=== PATIENT | female | born 1970 | race Caucasian/White ===

== ENCOUNTER → 2024-12-03 | Outpatient (CLI) | payer OTHER, SELFPAY ==
[2024-12-03 13:22] LABS: Glucose Estimated Average 117 mg/dL (80-131); Hemoglobin A1C 5.7 % Hgb (4.8-6.0)
[2024-12-03 13:25] LABS: Cardiac Risk Estimate 3.8 RATIO (3.7-5.6); Cholesterol 115 mg/dL (132-200); HDL Cholesterol 30 mg/dL (40-60); LDL Cholesterol,Calculated 59 mg/dL (0-130); Triglycerides 130 mg/dL (30-150)
== END | disposition home or self-care (01) ==
LOC: COPL 12:21
PROVIDERS: PCP Family Medicine; Referring Provider Family Medicine; Visit Provider Family Medicine
DX: E66.9 Obesity, unspecified (principal); E78.5 Hyperlipidemia, unspecified
CPT/HCPCS: 36415; 80061; 83036

== ENCOUNTER → 2024-12-31 | Outpatient (CLI) | payer OTHER, SELFPAY ==
[2024-12-31 13:06] LABS: Basophils # (Auto) 0.1 Thou/mm3 (0.0-0.2); Basophils % (Auto) 1 % (0-2.5); Eosinophils # (Auto) 0.2 Thou/mm3 (0.0-0.5); Eosinophils % (Auto) 4 % (0-10); Hemoglobin 14.4 g/dL (12.0-16.0); Immature Granulocytes % (Auto) 0 % (0-0); Immature Granulocytes Auto 0.02 Thou/mm3 (0.00-0.00); Lymphocytes # (Auto) 2.4 Thou/mm3 (1.0-4.8); Lymphocytes % (Auto) 35 % (10-50); Mean Corpuscular HGB Conc 34.3 g/dl (31.0-37.0); Mean Corpuscular Hemoglobin 28.2 pg (25.0-35.0); Mean Corpuscular Volume 82 fL (80-100); Monocytes # (Auto) 0.5 Thou/mm3 (0.0-0.8); Monocytes % (Auto) 7 % (0-12); Neutrophils # (Auto) 3.6 Thou/mm3 (1.8-7.7); Neutrophils % (Auto) 53 % (37-80); Nucleated Red Blood Cell % 0 /100 WBC (0); Platelet Count 212 Thou/mm3 (140-440); RDW Standard Deviation 41.7 fL (36.4-46.3); Red Blood Count 5.11 Miln/mm3 (4.00-5.20); White Blood Count 6.8 Thou/mm3 (3.6-11.0)
[2024-12-31 13:25] LABS: Alanine Aminotransferase 51 U/L (10-49); Albumin, Serum 4.6 gm/dL (3.5-5.0); Albumin/Globulin Ratio 2.3 (1.2-2.2); Alkaline Phosphatase 125 U/L (46-116); Anion Gap 9 (7-16); Aspartate Amino Transferase 33 U/L (0-34); BUN/Creatinine Ratio 14 Ratio (12-20); Bilirubin,Total 0.5 mg/dL (0.3-1.2); Blood Urea Nitrogen 13 mg/dL (9-23); Calcium 9.7 mg/dL (8.3-10.6); Calcium (Corrected) 9.7 mg/dL (8.5-10.1); Carbon Dioxide 28.9 mMol/L (20.0-31.0); Chloride 104 mMol/L (98-107); Creatinine (Component) 0.9 mg/dL (0.6-1.3); Glucose 129 mg/dL (74-106); Osmolality,Calculated 285 (275-295); Potassium 5.1 mMol/L (3.4-5.1); Sodium 142 mMol/L (136-145); Total Protein 6.6 gm/dL (5.7-8.2); eGFR > 60 See Note
[2024-12-31 13:41] LABS: CA 15-3 7.3 U/mL (<32.4); Vitamin D 25 Hydroxy Total 80.2 ng/mL (7.3-40.2)
== END | disposition home or self-care (01) ==
LOC: COPL 12:12
PROVIDERS: PCP Family Medicine; Referring Provider Internal Medicine Hematology & Oncology; Visit Provider Internal Medicine Hematology & Oncology
DX: C50.211 Malignant neoplasm of upper-inner quadrant of right female breast (principal); M85.80 Other specified disorders of bone density and structure, unspecified site
CPT/HCPCS: 36415; 80053; 82306; 85025; 86300

== ENCOUNTER → 2025-03-12 15:27 | Outpatient (AMB) | payer OTHER, SELFPAY ==
[2025-03-12 15:43] VITALS: BP 117/75; PULSE 61; RESP 17; TEMP 35.3; O2SAT 96; BMI 33.5
--- NOTE | 2025-03-12 15:43 | GYNCLNT_ITS ---
Vital Signs 03/12/25 15:43 Height 1.55 m Height Method Stated Weight 80.456 kg Weight Measurement Method Standing Scale BMI 33.5 BP 117/75 Blood Pressure Source Automatic Cuff Blood Pressure Location Left Upper Arm Position Sitting Respiration 17 Pulse 61 Pulse Source Monitor Temp 95.5 F L Temp Source Temporal Artery Scan Pulse Oximetry (%) 96 Oxygen Delivery Method Room Air Allergies/Home Meds Allergies & Medications Allergies NKA* Allergy (Uncoded 03/12/25 15:45) Medication Reconciliation No Known Home Medications 03/12/25 [History Confirmed 03/12/25] Intake Visit Data Collection New Patient or Established: New Patient (never been to [facility]) Reason for Visit:: OUTPATIENT PROGRAM COORDINATOR ANNUAL EXAM Seen by Clinical Staff ONLY (RN/MA): No Hat Conditioner Required: No Do You Feel Safe at Home: Yes Authorities Contacted: N/A PCP or OBGYN visit in last 3 months: No Hx Now: No Are you currently on any form of Control: No Pain Present Currently: No Pain Scale Used: Suazo-Portillo/Numerical Pain scale:: 0 Smoking Status Smoking Status: Never smoker Drop Clipper 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 Muñoz [address] Demarco [address] Kan 2019 Laparoscopic unilateral salpingectomy 2002 x 2, 2000, 2004 Other Relevant History: History of breast cancer. Status post bilateral mastectomy with reconstruction, and chemotherapy. BRCA 1 and 2 negative Elevated cholesterol No hypertension asthma or diabetes Last colonoscopy 2022 last bone density 12/26 last mammogram 05/2018 last Pap Questionnaires Covid-19 Vaccine Questionnaire Has patient been vacinated for Covid-19 Have you been vacinated for Covid-19: No PHQ-9 PHQ-2 Over the last 2 weeks, how often have you been bothered by any of the following problems? 1. Little interest or pleasure in doing things: not at all 2. Feeling down, depressed, or hopeless: not at all Total score: 0 PHQ-9 3. Trouble falling or staying asleep, or sleeping too much: Not at all 4. Feeling tired or having little energy: Not at all 5. Poor appetite or overeating: Not at all 6. Feeling bad about yourself - or that you are a failure or have let yourself or your family down: Not at all 7. Trouble concentrating on things, such as reading the newspaper or watching television: Not at all 8. Moving or speaking so slowly that other people could have noticed? - Or the opposite - being so fidgety or restless that you have been moving around a lot more than usual: not at all If you checked off any problems, how difficult have these problems made it for you to do your work, take care of things at home, or get along with other people?: not difficult at all Source: Developed by Drs. Trey Malloy, Raya An, Zachary Sam and colleagues, with an educational sha from [employer]. Depression screen completed yes Social History Living Situation History Marital Status: Lives With: Family Housing: House Housing Other:: Has a 20-year-old son and 24-year-old daughter, lost her in 2019 Tobacco History Smoking Status: Never smoker Second Hand Smoke Exposure: No Alcohol History Alcohol Intake: Never Domestic Abuse History Do You Feel Safe at Home: Yes History of Present Illness HPI Narrative The patient is a pleasant 54-year-old -0-3-2, history of miscarriage x 2, history of ectopic status post unilateral laparoscopic salpingectomy and 2 C-sections. Both babies weighed around 7 pounds 11 ounces. All her past gynecological care was through [place] [facility]. The patient presents as a new patient for an annual exam. She has a history of breast cancer diagnosed in 2019. She had a bilateral mastectomy by Dr. Muñoz followed by breast reconstruction by Dr. Demarco. She is negative for the BRCA 1 [address] Kan then performed a laparoscopic oophorectomy in 2019, as the patient's breast CA was triple positive. I have none of her past medical records today. She unfortunately also lost her spouse in 2019. She states he was fixing up the house and fell off a ladder and . She is not currently sexually active and doubts she will get remarried. She is happy to stay single. She has 2 children. Her daughter is 24 and is working towards getting a graduate degree in physical training and wants to work for some type of sports team. Her son is 20 and going away to [place] to college and is having a hard time deciding what he wants to do. 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 She still follows with Dr. Rider who is her oncologist. Her primary care is Dr. Vega and she did have a colon screen recently. Today she has no gynecological complaints specifically no hot flashes night sweats or vaginal bleeding. She still has her uterus in place. Gynecologic pain symptoms: Reports none Menopause concerns/symptoms: Reports none Other pertinent information: Patient went through menopause at age 47 Review of Systems Review of Systems Narrative Review of Systems: No hot flashes night sweats vaginal dryness or abnormal uterine bleeding. No incontinence. No pelvic pain. Exam Narrative Physical exam: Breast exam reveals bilateral implants. Bilateral mastectomy scars no breast tissue. No nipple present. No nipple tattoo present. No lumps or lympha denopathy. General Limitations: no limitations General Appearance: alert, in no apparent distress, comfortable, cooperative and well groomed Neck Neck exam: Present normal inspection, full ROM and trachea midline Chest Chest inspection: Present normal inspection and symmetric chest wall rise Resp Respiratory exam: Present normal lung sounds bilaterally Card Cardiovascular exam: Present regular rate, normal rhythm and normal heart sounds Abdominal Abdominal exam: Present soft and normal bowel sounds External exam: Present normal external exam (No significant pelvic organ prolapse) Speculum exam: Present normal speculum exam Bimanual exam: Present normal bimanual exam (Uterus is anteverted normal size no adnexal masses or tenderness.) Extremities Extremities exam: Present normal inspection and full ROM Psych Psychiatric exam: Present normal affect and normal mood Skin Skin exam: Present warm, dry, intact and normal color Office Procedures OB Clinic LOC & Office Proc's Nursing/Assessment Patient Status: Initial/New Patient OB Clinic Nursing Assessment: Medication Reconciliation, Update PMH in EMR and Vital Signs OB Clinic Coordination of Care: Complex Care and Chronic Disease 1-5, Consent,records obtained, informed consent, Education Simp Pt/Fam, Lab and Marina ging orders and Staff clarify orders Miscellaneous Interventions: Breast Exam and Pelvic/Pap Smear Set up New Patient Charge New Patient Point Assignment: [id number] New Patient Point Charge: PACS SPECIALIST Level 4 ([id number]) Assessment & Plan Diagnosis / Problem List (1) Encounter for Routine Gynecological Examination: Qualifiers: Gynecological examination findings: abnormal findings ABSENT Qualified Code(s): Z01.419 - Encounter for gynecological examination (general) (routine) without abnormal findings Plan: Pap with cotesting to HPV performed pelvic exam performed breast exam performed and encouraged. Patient is following with her breast cancer doctors. She states she does not need mammograms. She is up-to-date with colon screening and bone mineral density screening. (2) Breast CA: Status: Acute Qualifiers: Breast location: unspecified site of breast Estrogen receptor status: positive Patient sex: female Laterality: unspecified laterality Qualified Code(s): C50.919 - Malignant neoplasm of unspecified site of unspecified female breast; Z17.0 - Estrogen receptor positive status [ER+] Plan: Patient's status post bilateral mastectomy with reconstruction and chemotherapy.. She will follow with her oncologist Dr. Rider. She is BRCA1 BRCA2 negative and has had a prophylactic bilateral salpingo-oophorectomy.. Additional Plan Follow Up: 1 Year [facility]: [facility] Pap Smear Procedure Pre-op diagnosis general: Annual wellness exam Post-op diagnosis procedure note: Same [place] in room during procedure?: No Procedure position: lithotomy Speculum inserted, cervix visualized: Yes Cervical appearance: normal Collection method: spatula and cytobrush Specimen placed in liquid-based cytology medium: Yes Complications: No Patient tolerated procedure well: Yes Follow up pending results: phone call Procedure Notes:: Pap with cotesting to HPV performed Papsmear completed: yes
== END ==
LOC: HODSOBC 15:27
PROVIDERS: PCP Family Medicine; Referring Provider Family Medicine; Supervising Provider Obstetrics & Gynecology; Visit Provider Obstetrics & Gynecology
DX: Z01.419 Encounter for gynecological examination (general) (routine) without abnormal findings (principal); Z11.51 Encounter for screening for human papillomavirus (HPV); Z85.3 Personal history of malignant neoplasm of breast; Z90.13 Acquired absence of bilateral breasts and nipples; Z92.21 Personal history of antineoplastic chemotherapy; Z90.722 Acquired absence of ovaries, bilateral; Z90.79 Acquired absence of other genital organ(s); Z98.82 Breast implant status
CPT/HCPCS: 99204; Q0091; G0463

== ENCOUNTER → 2025-07-05 | Outpatient (CLI) | payer OTHER, SELFPAY ==
[2025-07-05 13:17] LABS: Basophils # (Auto) 0.1 Thou/mm3 (0.0-0.2); Basophils % (Auto) 1 % (0-2.5); Eosinophils # (Auto) 0.2 Thou/mm3 (0.0-0.5); Eosinophils % (Auto) 3 % (0-10); Hematocrit 47.1 % (36.0-46.0); Hemoglobin 15.6 g/dL (12.0-16.0); Immature Granulocytes Auto 0.02 Thou/mm3 (0.00-0.00); Lymphocytes # (Auto) 2.2 Thou/mm3 (1.0-4.8); Lymphocytes % (Auto) 30 % (10-50); Mean Corpuscular HGB Conc 33.1 g/dl (31.0-37.0); Mean Corpuscular Hemoglobin 28.7 pg (25.0-35.0); Mean Corpuscular Volume 87 fL (80-100); Monocytes # (Auto) 0.5 Thou/mm3 (0.0-0.8); Monocytes % (Auto) 7 % (0-12); Neutrophils # (Auto) 4.3 Thou/mm3 (1.8-7.7); Neutrophils % (Auto) 60 % (37-80); Nucleated Red Blood Cell # 0.00 Thou/mm3 (0.00-0.00); Nucleated Red Blood Cell % 0 /100 WBC (0); Platelet Count 219 Thou/mm3 (140-440); RDW Standard Deviation 42.8 fL (36.4-46.3); Red Blood Count 5.44 Miln/mm3 (4.00-5.20); White Blood Count 7.3 Thou/mm3 (3.6-11.0)
[2025-07-05 13:33] LABS: Alanine Aminotransferase 47 U/L (10-49); Albumin, Serum 4.9 gm/dL (3.5-5.0); Albumin/Globulin Ratio 1.9 (1.2-2.2); Alkaline Phosphatase 128 U/L (46-116); Anion Gap 9 (7-16); Aspartate Amino Transferase < 8 U/L (0-34); BUN/Creatinine Ratio 15 Ratio (12-20); Bilirubin,Total 0.6 mg/dL (0.3-1.2); Blood Urea Nitrogen 12 mg/dL (9-23); Calcium 10.5 mg/dL (8.3-10.6); Calcium (Corrected) 10.5 mg/dL (8.5-10.1); Carbon Dioxide 29.7 mMol/L (20.0-31.0); Chloride 103 mMol/L (98-107); Creatinine (Component) 0.8 mg/dL (0.6-1.3); Globulin 2.6 gm/dL (2.3-3.5); Glucose 90 mg/dL (74-106); Osmolality,Calculated 282 (275-295); Potassium 4.7 mMol/L (3.4-5.1); Sodium 142 mMol/L (136-145); Total Protein 7.5 gm/dL (5.7-8.2); eGFR > 60 See Note
[2025-07-06 13:34] LABS: CA 15-3 12.6 U/mL (<32.4)
== END | disposition home or self-care (01) ==
PROVIDERS: PCP Family Medicine; Referring Provider Internal Medicine Hematology & Oncology; Visit Provider Internal Medicine Hematology & Oncology
DX: C50.211 Malignant neoplasm of upper-inner quadrant of right female breast (principal)
CPT/HCPCS: 36415; 80053; 85025; 86300